=== PATIENT | male | born 1970 | race Two or more races ===

== ENCOUNTER → 2016-08-31 | Outpatient (CLI) | payer OTHER ==
[~2016-08-31] MED LIST: ENAL10TA PO; METF850T PO; PROP60CA7 PO; SPIR100T31 PO
--- NOTE | 2016-08-31 10:02 | RADRPT ---
PROCEDURE: XR right knee. CLINICAL INDICATION: Knee pain TECHNIQUE: AP weightbearing, PA and weightbearing, lateral weightbearing and sunrise views are les ilable for review. COMPARISON: None available FINDINGS: There is moderate osteoarthrosis involving the patellofemoral compartment and mild osteoarthrosis in volving the medial tibial femoral compartment and the lateral tibial femoral compartment. This is as sociated with joint space narrowing, subchondral sclerosis and osteophytosis. There is otherwise normal mineralization, architecture and alignment. No fractures are identified. No osseous lesions are identified. The soft tissues are unremarkable. IMPRESSION: Moderate osteoarthrosis involving the patellofemoral compartment and mild osteoarthrosis involving t he medial tibial femoral compartment and the lateral tibial femoral compartment. RPTAT: HGDB .Steve Frost MD, Date Time Electronically viewed and signed by .Steve Frost MD, on 08/31/2016 10:02 .B/
== END | disposition home or self-care (01) ==
LOC: HKI 09:21
PROVIDERS: ATTEND Orthopaedic Surgery
DX: S83.271D Complex tear of lateral meniscus, current injury, right knee, subsequent encounter (principal); M25.561 Pain in right knee; M17.11 Unilateral primary osteoarthritis, right knee; E11.9 Type 2 diabetes mellitus without complications; I10 Essential (primary) hypertension
CPT/HCPCS: 73564; Z7500; G0463

== ENCOUNTER → 2016-11-09 | Outpatient (CLI) | payer OTHER | END | disposition home or self-care (01) | LOC: HKI 10:11 | PROVIDERS: ATTEND Orthopaedic Surgery | DX: M25.561 Pain in right knee (principal); M17.11 Unilateral primary osteoarthritis, right knee; S83.271A Complex tear of lateral meniscus, current injury, right knee, initial encounter; S83.231A Complex tear of medial meniscus, current injury, right knee, initial encounter | CPT/HCPCS: G0463 ==

== ENCOUNTER 2017-06-23 09:12 | Day surgery (SDC) | payer OTHER ==
[~2017-06-23] VITALS: Ht 172.7 cm; Wt 128.1 kg
[2017-06-23 10:32] VITALS: Ht 172.7 cm; Wt 128.1 kg
[2017-06-23] MEDS ORDERED: RIFA550T4 PO (10:34)
[2017-06-23] MEDS ORDERED: OMEP40CA6 PO (10:34)
[2017-06-23] MEDS ORDERED: LIDOCAINE 2% (SDV) 5 ML INJ ONE (11:41)
[2017-06-23] MEDS ORDERED: PROPOFOL 60 ML ONE (11:41)
--- NOTE | 2017-06-23 12:04 | OPPN ---
Date/Time of Note Date/Time of Note DATE: 06/23/17 TIME: 12:02 Proc Note GI Procedure Date 06/23/17 Indication: diagnostic, treatment Pre-procedure Diagnosis esophageal varices needs banding Post-procedure Diagnosis gr 3 eso varices Procedure Performed: Endoscopy Surgeon see signature line Viscosity Worker none Anesthesia Type: MAC Anesthesiologist: MALLORY CASTRO MD Tourniquet Time none EBL none Transfusion required none Biopsy 1: gastric ulcer Grafts/Implants none Tubes/Drains none Complication(s) none Procedure Description under mac egd banding of eso varices done gastric ulcer biopsied ISAK العراقي MD Jun 23, 2017 12:04
[2017-06-23 12:50] VITALS: BP 134/71; PULSE 67; RESP 18
--- NOTE | 2017-06-23 14:11 | GILP ---
DATE OF PROCEDURE: NAME OF PROCEDURE: Esophagogastroduodenoscopy, esophageal variceal banding and esophageal gastric u lcer biopsy. PREOPERATIVE DIAGNOSIS: 1. Patient presenting with history of esophageal varices. The patient needs an esophageal variceal banding to prevent further bleeding. 2. History of gastric ulcer to evaluate to see if there are any ulcers or any evidence of cancer of the stomach. POSTOPERATIVE DIAGNOSES: 1. Grade III esophageal varices. 2. A 3 mm linear ulcer noted in the mid body posterior wall of the stomach. Biopsy was done. CLOt est was performed. DESCRIPTION OF PROCEDURE: After informed written consent was obtained, the patient was asked to lie on the left lateral side. Intravenous anesthesia was given by anesthesiologist, Dr. Burk. When the patient became somnolent, the Olympus video upper endoscope was introduced into the oropharynx, then into the esophagus. Esophagus appeared to show evidence of grade III esophageal varices. Mini mal erosions and erythema noted above the GE junction on the varices. Scope at this time was advanc ed into the stomach. A 3 mm ulcer noted in the mid body posterior wall of the stomach. Diffuse gas tritis was noted in the entire stomach. Biopsy was done from the antrum, the lesser curvature and t he fundus to rule out H. pylori infection. The duodenum appeared normal up to the end of the third portion. Endoscope at this time was withdrawn. At this time, the [employer] esophageal vari ceal banding device was attached to the scope and scope was reintroduced into the stomach and 3 vari luis were selected and bandings were deployed over these varices. Photographs were obtained. Endosc ope at this time was withdrawn and the procedure was terminated. PLAN: Recommend propranolol 20 mg p.o. b.i.d. Dictated By: ISAK DESAI/NTS Conf#: [id number] DID#: [id number] CC: Sammie Kelley MD;*End*
== END 2017-06-23 15:30 | disposition home or self-care (01) ==
LOC: GIL 09:12
PROVIDERS: ATTEND Internal Medicine Gastroenterology
DX: I85.00 Esophageal varices without bleeding (principal); I10 Essential (primary) hypertension; E11.9 Type 2 diabetes mellitus without complications; E78.5 Hyperlipidemia, unspecified; E66.01 Morbid (severe) obesity due to excess calories; Z68.41 Body mass index [BMI] 40.0-44.9, adult
CPT/HCPCS: 43239; 82962; 88305; 88312; Z7610

== ENCOUNTER 2017-06-26 04:37 | Inpatient (IN) | payer OTHER ==
[~2017-06-26] VITALS: Ht 172.7 cm; Wt 126.5 kg
[~2017-06-26 04:37] MED LIST changes: +OMEP40CA6 PO; +RIFA550T4 PO; -SPIR100T31 PO
[2017-06-26] MEDS ORDERED: morphine 4 MG/ML VIAL IV STA (05:09)
[2017-06-26] MEDS ORDERED: ONDANSETRON 4 MG INJ IV STA (05:09)
[2017-06-26] MEDS ORDERED: SOD CHLORIDE 0.9% 1,000 ML IV STA (05:09)
[2017-06-26 05:54] LABS: ABNORMAL IP MESSAGE 1; HEMATOCRIT 36.1 % (42.0-52.0); HEMOGLOBIN 12.7 g/dl (14.0-18.0); MEAN CORPUSCULAR HEMOGLOBIN 34.5 pg (29.0-33.0); MEAN CORPUSCULAR HGB CONC 35.2 g/dl (32.0-37.0); MEAN CORPUSCULAR VOLUME 98.1 fl (82.0-101.0); MEAN PLATELET VOLUME 10.2 fl (7.4-10.4); POSITIVE DIFF @See below; RED BLOOD COUNT 3.68 10^6/ul (4.70-6.10); RED CELL DISTRIBUTION WIDTH 15.4 % (11.5-14.5); WHITE BLOOD COUNT 3.1 10^3/ul (4.8-10.8)
--- NOTE | 2017-06-26 05:57 | RADRPT ---
PROCEDURE: CHEST - 1 VIEW CLINICAL INDICATION: 46-year-old male with chest/abdominal pain. TECHNIQUE: A single frontal semi-upright view of the chest was performed portably. The images wer e reviewed on a PACS workstation. COMPARISON: None. FINDINGS: The cardiomediastinal silhouette within normal limits. There is a shallow inspiration. There is bila teral lower lung zone subsegmental atelectasis. There is no evidence for an infiltrate. There is n o evidence for congestive heart failure. There is no evidence for pneumothorax. The osseous structur es are intact. IMPRESSION: Shallow inspiration with bilateral lower lung zone subsegmental atelectasis. .Delfin Wei MD, MD Date Time Electronically viewed and signed by .Delfin Wei MD, on 06/26/2017 05:56 .M/
--- NOTE | 2017-06-26 06:04 | ERD ---
ER Documentation Chief Complaint Chief Complaint had endoscopy 3 days ago, c/o diarrhea/fever. seen at [facility] yesterday HPI This is a 46-year-old male with a past medical history of Diabetes, GERD, hypertension, liver disease who is presenting with fever, chills, nausea and diarrhea since yesterday. He had an endoscopy 3 days ago and was ultimately discharged. He is actually seen at [facility] yesterday for similar symptoms as today. The patient has had no headache or vision changes. The patient does not endorse neck or back pain. The patient denies lightheadedness or dizziness. The patient has had no chest pain or shortness of breath or trouble breathing. The patient denies vomiting. The patient denies changes to bowel movements or urination. He notes that his stool has been yellow in color. The patient has had no focal deficits. The patient has had no weakness or numbness or tingling to the face or extremities. Of note, the patient noticed rubber bands in his stool. ROS All systems reviewed and are negative except as per history of present illness. Medications Home Meds Reported Medications Rifaximin* (Xifaxan*) 550 Mg Tablet, 550 MG PO BID, TAB 06/23/17 Omeprazole* (Omeprazole*) 40 Mg Capsule.dr, 40 MG PO DAILY, #30 CAP 06/23/17 Propranolol Hcl* (Inderal* LA) 60 Mg Cap.sa.24h, 40 MG PO BID, CAP 04/16/14 Metformin Hcl* (Metformin Hcl*) 850 Mg Tablet, 850 MG PO WITH BREAKFAST DINNE, TAB 04/16/14 Enalapril Maleate* (Enalapril Maleate*) 10 Mg Tablet, 10 MG PO DAILY, TAB 04/16/14 Discontinued Reported Medications Spironolactone* (Spironolactone*) 100 Mg Tablet, 25 MG PO TID, TAB 04/16/14 Allergies Allergies: Coded Allergies: acetaminophen (Unverified Allergy, Intermediate, 06/26/17) PMhx/Soc History of Surgery: Yes (APPENDIX) Anesthesia Reaction: No Hx Neurological Disorder: No Hx Respiratory Disorders: No Hx Cardiac Disorders: Yes (HTN, HYPELIPIDEMIA) Hx Psychiatric Problems: No Hx Miscellaneous Medical Probl: Yes (DM) Hx Alcohol Use: No Hx Substance Use: No Hx Tobacco Use: No Smoking Status: Never smoker FmHx Family History: No diabetes Physical Exam Vitals Vital Signs Date Time Temp Pulse Resp B/P Pulse Ox O2 Delivery O2 Flow Rate FiO2 06/26/17 06:30 101.1 93 24 120/70 97 Room Air 06/26/17 05:38 102.2 90 28 130/64 95 Room Air 06/26/17 04:47 101.3 98 20 147/72 95 Physical Exam Const: No apparent distress, well-developed, well-nourished Head: Normocephalic, Atraumatic Eyes: Normal Conjunctiva. Extraocular movements intact. Pupils equal, round and reactive to light ENT: Normal External Ears, Nose and Mouth. Neck: Full range of motion. No meningismus. Resp: Clear to auscultation bilaterally, No wheezes, rales or rhonchi Cardio: Regular rate and rhythm. No murmurs, rubs or gallops Abd: Soft, Distended, Right sided tenderness. Normal bowel sounds Skin: No petechiae or rashes Back: No midline tenderness. No CVA tenderness Ext: No cyanosis, or edema Neur: Awake and alert, oriented 4. Cranial nerves intact. No facial droop. Normal strength, sensation and coordination. Psych: Normal Mood and Affect Result Diagram: 06/26/17 0532 06/26/17 0532 Results 24 hrs Laboratory Tests Test 06/26/17 05:32 06/26/17 06:13 White Blood Count 3.110^3/ul Red Blood Count 3.6810^6/ul Hemoglobin 12.7g/dl Hematocrit 36.1% Mean Corpuscular Volume 98.1fl Mean Corpuscular Hemoglobin 34.5pg Mean Corpuscular Hemoglobin Concent 35.2g/dl Red Cell Distribution Width 15.4% Platelet Count 2410^3/UL Mean Platelet Volume 10.2fl Neutrophils % % Lymphocytes % % Monocytes % % Eosinophils % % Basophils % % Nucleated Red Blood Cells % 0.0/100WBC Neutrophils # 10^3/ul Lymphocytes # 10^3/ul Monocytes # 10^3/ul Eosinophils # 10^3/ul Basophils # 10^3/ul Nucleated Red Blood Cells # 10^3/ul Sodium Level 140mmol/L Potassium Level 4.1mmol/L Chloride Level 110mmol/L Carbon Dioxide Level 22mmol/L Anion Gap 12 Blood Urea Nitrogen 11mg/dl Creatinine 0.89mg/dl Glucose Level 111mg/dl Lactic Acid Level 2.4mmol/L Calcium Level 8.5mg/dl Total Bilirubin 1.6mg/dl Direct Bilirubin 0.00mg/dl Indirect Bilirubin 1.6mg/dl Aspartate Amino Transf (AST/SGOT) 50IU/L Alanine Aminotransferase (ALT/SGPT) 45IU/L Alkaline Phosphatase 164IU/L Total Protein 7.5g/dl Albumin 3.0g/dl Globulin 4.50g/dl Albumin/Globulin Ratio 0.66 Lipase 288U/L Urine Color YELLOW Urine Clarity CLEAR Urine pH 5.0 Urine Specific [place] 1.012 Urine Ketones NEGATIVEmg/dL Urine Nitrite NEGATIVEmg/dL Urine Bilirubin NEGATIVEmg/dL Urine Urobilinogen NEGATIVEmg/dL Urine Leukocyte Esterase NEGATIVELeu/ul Urine Microscopic RBC 0/HPF Urine Microscopic WBC 1/HPF Urine Hemoglobin 1+mg/dL Urine Glucose NEGATIVEmg/dL Urine Total Protein NEGATIVEmg/dl Current Medications Medications (Trade) Dose Ordered Sig/Kelvin Route PRN Reason Start Time Stop Time Status Last Admin Dose Admin Sodium Chloride (NS) 1,000 ml @ 1,000 mls/hr Q1H STAT IV 06/26/17 05:09 06/26/17 06:08 DC 06/26/17 05:09 Morphine Sulfate (morphine) 4 mg ONCE STAT IV 06/26/17 05:09 06/26/17 05:11 DC 06/26/17 06:24 Ondansetron HCl (Zofran Inj) 4 mg ONCE STAT IV 06/26/17 05:09 06/26/17 05:11 DC 06/26/17 06:24 Sodium Chloride 2930 ml 2,930 ml BOLUS OVER 2 HOURS STAT IV* 06/26/17 06:52 06/26/17 06:56 DC Vancomycin HCl 250 ml @ 125 mls/hr ONCE STAT IVPB 06/26/17 06:52 06/26/17 08:51 Piperacillin Sod/ Tazobactam Sod 50 ml @ 100 mls/hr ONCE STAT IVPB 06/26/17 06:52 06/26/17 07:21 Metronidazole (Flagyl 500 Mg (Pmx)) 100 ml @ 100 mls/hr ONCE STAT IVPB 06/26/17 06:52 06/26/17 07:51 Procedures/MDM MDM The patient's presentation warrants further investigation. LABS The patient's blood work was obtained and reviewed. The patient's CBC shows leukopenia. The patient is febrile and does appear systemically ill. I do suspect a systemic infection. The patient is mildly anemic today, but this does not require emergent treatment. The patient is thrombocytopenic, likely attributed to his cirrhosis and splenomegaly, sequela from liver disease. The patient's CMP shows no signs of metabolic or electrolyte emergencies. The patient has unremarkable renal function testing. LFTs are elevated. Lactic is also elevated. IMAGING CT Abd/Pelvis 1. Mild colonic diverticulosis with pericolonic inflammation suggestive of acute diverticulitis or inflammatory infectious colitis in the ascending colon and see pericecal region. 2. Appendix not visualized and correlate with prior surgical history and no evidence for acute appendicitis. 3. Diffuse fatty infiltration of the liver and mild splenomegaly 4. 4 mm right inferior pole nonobstructive renal calculus 5. No evidence for pneumoperitoneum or ascites A call report was made to Dr. Devonte Storm at 06/26/2017 6:16:18 AM following the completion of the examination by the undersigned. Electronically viewed and signed by .Faviola Martinez MD, MD on 06/26/2017 06: 17 CXR The cardiomediastinal silhouette within normal limits. There is a shallow inspiration. There is bilateral lower lung zone subsegmental atelectasis. There is no evidence for an infiltrate. There is no evidence for congestive heart failure. There is no evidence for pneumothorax. The osseous structures are intact. IMPRESSION: Shallow inspiration with bilateral lower lung zone subsegmental atelectasis. Electronically viewed and signed by .Delfin Wei MD, MD on 06/26/2017 05:56 TREATMENT/DISPOSITION The patient's presentation is concerning for an intra-abdominal infection, appearing to be diverticulitis on CT scan. The sepsis protocol to be followed, except for IV fluids. The patient will receive 2 L, but will not receive a full 30 cc/kg because of his history of heart failure. He will receive broad- spectrum antibiotics as well. Patient's infectious symptoms have not stabilized and the patient is at risk of rapid decompensation. The patient will be admitted for careful hydration, antibiotic therapy, and infectious source control. Severe Sepsis criteria: Infectious source: Diverticulitis End organ damage indicated by: Lactate > 2.0 mmol/L Plt < 100 Sepsis Management: Time of recognition of sepsis: Upon Arrival Within 3 hours of recognition: Blood cultures x 2 before broad-spectrum antibiotics: Yes 30 ml/kg NS bolus: 2L Given, decreased for CHF Initial lactate: 2.4 Repeat lactate: Pending Time of recognition of septic shock: No septic shock Accepting Care Team Current data and ongoing care discussed. Admitting Physician: Earnestine Archuleta Coding Team Lead(s): None Outstanding Data: Culture results At this time, I feel that the patient requires admission for further evaluation and management. The patient may require GI consultation given that the patient had rubber bands in his stool. It is possible that those were previous attempts prior to successful banding of his esophageal varices. However, this may be evaluated by GI at that time. The patient will be admitted to Panel in accordance with the patient's insurance. The patient was accepted by Dr. Colby at 0701 on June 26, 2017. CRITICAL CARE NOTE Time: 30 minutes excluding all billable procedures. Treatments/Evaluations: Evaluation of the patient's medical record including previous records & current laboratory/imaging studies, close monitoring, potential interventions if hemodynamically unstable or cardiopulmonary decline or neurologic decline, maintaining tight fluid balance, any discussions with the family regarding the patient's status and prognosis. Disclaimer: Inadvertent spelling and grammatical errors are likely due to EHR/ dictation software use and do not reflect on the overall quality of patient care. Note that the electronic time recorded on this note does not necessarily reflect the actual time of the patient encounter. Departure Diagnosis: Primary Impression: Sepsis Sepsis type: sepsis due to unspecified organism Qualified Code: A41.9 - Sepsis, due to unspecified organism Additional Impressions: History of esophagogastroduodenoscopy (EGD) Abdominal pain Abdominal location: unspecified location Qualified Code: R10.9 - Abdominal pain, unspecified abdominal location Diarrhea Diarrhea type: unspecified type Qualified Code: R19.7 - Diarrhea, unspecified type Thrombocytopenia Leukopenia Leukopenia type: unspecified Qualified Code: D72.819 - Leukopenia, unspecified type Condition: Serious CHENG STORM MD Jun 26, 2017 06:04
[2017-06-26 06:05] LABS: PLATELET COUNT 24 10^3/UL (140-415)
--- NOTE | 2017-06-26 06:17 | RADRPT ---
PROCEDURE: CT abdomen and pelvis without contrast. CLINICAL INDICATION: Abdominal pain TECHNIQUE: CT scan of the abdomen and pelvis without contrast was performed on a [employer] CT scanner utilizing axial imaging from the lung bases through the pubis symphysis. The patient was sc anned without intravenous contrast. Sagittal and coronal reformatted images were made. The CTDIvol is 22.29 mGy and the DLP is 1510.27 mGycm. DICOM images are available. One of the following 3 dose reduction techniques were used during this CT examination: 1) Automated exposure control 2) Adjustment of the mA +/- kV according to patient size or 3) Use of iterative reconstruction technique COMPARISON: No relevant priors FINDINGS: The lung bases are clear. The heart size is normal. No pericardial or pleural effusion is present. Diffuse fatty infiltration of the liver is noted with a normal-sized liver. Mild splenomegaly is pre sent. The visualized stomach is normal. The visualized pancreas, gallbladder, and bilateral adrenal glands are normal. The bilateral kidneys demonstrate a 4 mm right inferior pole renal calculus which is nonobstructive. No evidence for hydroureteronephrosis is present. The bilateral ureters are symm etric. The urinary bladder is normal. The visualized bowel demonstrates a nonobstructive pattern. Mild diverticulosis is present. The appe arance of pericolonic inflammation is noted adjacent to the cecum and the ascending colon. This is m ost likely due to an acute diverticulitis and consider other etiologies such as inflammatory or infe ctious colitis. No evidence for abscess collections or pneumoperitoneum is present. The appendix is not visualized and correlate with prior appendectomy. No evidence for pneumoperitoneum or ascites is present. No pelvic mass, lymphadenopathy, or free fluid is seen. There is no evidence of free air. No aneur ysmal dilatation of the aorta is evident. The surrounding osseous structures are remarkable for degenerative spondylosis of the imaged spine a nd bridging osteophytes of the bilateral sacroiliac joints. No evidence for acute fractures or dislo cations are present. The appearance of a grade 1 spondylolisthesis of 3 mm of L4 and L5 is noted wit hout evidence for spondylolysis.. IMPRESSION: 1. Mild colonic diverticulosis with pericolonic inflammation suggestive of acute diverticulitis or inflammatory infectious colitis in the ascending colon and see pericecal region. 2. Appendix not visualized and correlate with prior surgical history and no evidence for acute appe ndicitis. 3. Diffuse fatty infiltration of the liver and mild splenomegaly 4. 4 mm right inferior pole nonobstructive renal calculus 5. No evidence for pneumoperitoneum or ascites A call report was made to Dr. Devonte Storm at 06/26/2017 6:16:18 AM following the completion of the ex amination by the undersigned. RPTAT: HDC .Faviola Martinez MD, MD Date Time Electronically viewed and signed by .Faviola Martinez MD, MD on 06/26/2017 06:17 .C/
[2017-06-26 06:42] LABS: ADD UMIC YES; UR ASCORBIC ACID NEGATIVE (NEGATIVE); UR BILIRUBIN (Dip) NEGATIVE (NEGATIVE); UR BLOOD (Dip) 1+ mg/dL (NEGATIVE); UR CLARITY CLEAR (CLEAR); UR COLOR YELLOW (YELLOW); UR GLUCOSE (Dip) NEGATIVE (NEGATIVE); UR KETONES (Dip) NEGATIVE (NEGATIVE); UR LEUKOCYTE ESTERASE (Dip) NEGATIVE Leu/ul (NEGATIVE); UR NITRITE (Dip) NEGATIVE (NEGATIVE); UR RBC 0 /HPF (0-5); UR SPECIFIC GRAVITY (Dip) 1.012 (1.003-1.030); UR TOTAL PROTEIN (Dip) NEGATIVE (NEGATIVE); UR UROBILINOGEN (Dip) NEGATIVE (NEGATIVE)
[2017-06-26 06:44] LABS: ALBUMIN/GLOBULIN RATIO 0.66; BILIRUBIN,INDIRECT 1.6 mg/dl (0-1.1); BILIRUBIN,TOTAL 1.6 mg/dl (0.2-1.3); CALCIUM 8.5 mg/dl (8.4-10.2); CREATININE 0.89 mg/dl (0.61-1.24); POTASSIUM 4.1 mmol/L (3.5-5.1); TOTAL PROTEIN 7.5 g/dl (6.1-8.1)
[2017-06-26] MEDS ORDERED: PIPER-TAZO 3.375 GM IV (PMX) 50 ML IVPB STA (06:52)
[2017-06-26] MEDS ORDERED: SODIUM CHLORIDE 0.9% 1L BAG IV* STA (06:52)
[2017-06-26] MEDS ORDERED: metroNIDAZOLE 500 MG/NS (PMX) 100 ML IVPB STA (06:52)
[2017-06-26] MEDS ORDERED: VANCOMYCIN 1 GM (PMX) 250 ML IVPB STA (06:52)
[2017-06-26] MEDS ORDERED: ONDANSETRON 4 MG INJ IV PRN ×2 (07:30→10:30)
[2017-06-26] MEDS ORDERED: SOD CHLORIDE 0.9% 1,000 ML IV ONE (07:30)
[2017-06-26 08:30] VITALS: TEMP 98.9
[2017-06-26 08:53] LABS: ANISOCYTOSIS 1+ (0-0); BASOPHILS % (M) 1 % (0-2); METAMYELOCYTES %M 1 % (0-0); MONOCYTES % (M) 1 % (0-11); OVALOCYTES 1+ (0-0); PLATELET ESTIMATE SIG DECREASED; POIKILOCYTOSIS 1+ (0-0); POLYCHROMASIA 1+ (0-0)
[2017-06-26 08:55] LABS: PATH REVIEW? YES
--- NOTE | 2017-06-26 10:04 | HP ---
Date/Time of Note Date/Time of Note DATE: 06/26/17 TIME: 10:04 Assessment/Plan VTE Prophylaxis VTE Prophylaxis Intervention: ambulation Assessment/Plan Chief Complaint/Hosp Course 46-year-old male status post EGD with banding 3 days ago, now presenting to the emergency room with right upper quadrant abdominal pain, fever, chills and mild diarrhea that started yesterday. 1. Acute diverticulitis. -Admit as inpatient. Bowel rest, IV fluids, pain control, antiemetics PRN, Cipro and Flagyl. -Blood cultures. -GI consult as patient had EGD 3 days ago. 2. Recent history of esophageal varices, status post EGD with banding. -Continue PPI therapy. 3. Fatty liver/liver cirrhosis/splenomegaly. -Obtain hip panel. Monitor LFTs closely. Avoid hepatotoxins. 4. Hyperbilirubinemia, transaminase elevation likely secondary to #3. -We will monitor. 5. Pancytopenia, likely secondary to liver disease. -Platelet counts at 24,000-will transfuse 1 unit platelet pheresis today. -Monitor. 6. Lactic acidosis, rule out sepsis. Resolved. -Follow-up cultures. Continue prophylactic antibiotics for #1. 7. Type 2 diabetes. -Accu-Cheks/insulin sliding scale. 8. Obesity. -Weight reduction advised. Plan: Patient will be kept strict n.p.o until his symptoms improved and then we will advance diet slowly as tolerated. We will also follow-up with GI recommendations. Approximately 60 minutes was spent on this history and physical. Rest of the management depend on hospital course. Patient was seen in collaboration with Dr. Pierce. Problems: HPI/ROS Admit Date/Time Admit Date/Time Hx of Present Illness This is a 46-year-old male with a past medical history of type 2 diabetes, hypertension, GERD, liver cirrhosis, appendectomy, esophageal varices, status post EGD with banding 3 days ago, who presented to the emergency room for evaluation of right-sided abdominal pain with subjective fevers and chills that started yesterday. He also had mild diarrhea which is now stopped. Patient denied any hematemesis, hematochezia, melena, hematuria, chest pain, shortness of breath, dizziness, or other constitutional symptoms. Initial workup was significant for elevated lactic acid 2.4, total bilirubin 1.6 , indirect bilirubin 1.6, AST 50, alkaline phosphatase 164, WBC 3.1, hemoglobin 12.7, hematocrit 36.1 and platelet 24. Urine analysis negative for any acute infection. A CT abdomen and pelvis showed diverticulosis with pericolonic inflammation suggestive of acute diverticulitis or inflammatory/infectious colitis in the ascending colon. There was also diffuse fatty infiltration of the liver and mild splenomegaly. Patient was given Zosyn/vancomycin/Flagyl with IV fluids in the emergency room for sepsis protocol and was admitted. ROS A 12 point review of system was assessed and is negative other than what is mentioned in the HPI. PMH/Family/Social Past Medical History See HPI Past Surgical History See HPI Social History Patient denied history of alcohol, smoking or illicit drug use. Smoking Status: Never smoker Exam/Review of Systems Vital Signs Vitals Vital Signs Date Time Temp Pulse Resp B/P Pulse Ox O2 Delivery O2 Flow Rate FiO2 06/26/17 08:30 98.9 89 25 101/59 98 Nasal Cannula 3.0 Exam Exam General: Well developed,adequately built, not in any acute distress . HEENT: Normocephalic, Atraumatic, No laceration or hematoma; Eyes: PEERL, Conjunctiva clear, Anicteric sclera Neck: Supple without any lymphadenopathy, nontender, no JVD, no carotid bruits, trachea midline, no thyromegaly Cardiac: S1, S2 auscultated, regular rhythm and rate, no mumurs or gallop Pulmonary: Normal respiratory effort. Chest clear to auscultation bilaterally, no adventitious breath sounds GI: Right upper quadrant pain. Soft, non- distended, no masses, no rebound tenderness or guarding. Bowel sounds active on all four quadrants Genitourinary: Deferred Extremities: No cyanosis, clubbing, or edema. Pulses [2+] bilaterally. Full ROM on all four extremities. No focal weakness appreciated. Neurologic: Alert to person, place, time, and situation. Affect appropriate, intact sensation. Skin: Clean,dry, and intact. No ecchymosis, no rashes, or lesions Labs Result Diagram: 06/26/17 0532 06/26/17 0532 GINGER SOLORIO NP Jun 26, 2017 10:04
[2017-06-26] MEDS ORDERED: hydrALAzine 20 MG INJ IV PRN (10:30)
[2017-06-26] MEDS ORDERED: NACL 0.9% 3 ML SYG IV SCH (10:30)
[2017-06-26] MEDS ORDERED: BISACODYL 10 MG SUPP PR PRN (10:30)
[2017-06-26] MEDS ORDERED: morphine 2 MG INJ IV PRN (10:30)
[2017-06-26 10:34] LABS: HAAIG REFLEX REFLEX FILED
[2017-06-26 14:00] VITALS: BP 109/51; PULSE 80; RESP 20; Ht 172.7 cm; Wt 126.5 kg
[2017-06-26 14:45] LABS: HEPATITIS B CORE ANTIBODY NEGATIVE (NEGATIVE)
[2017-06-26] MEDS ORDERED: SOD CHLORIDE 0.9% 250 ML IV* ONE (16:11)
[2017-06-26] MEDS: metroNIDAZOLE 500 MG/NS (PMX) 100 ML IVPB SCH ×2 (16:39→23:00)
[2017-06-26] MEDS: SOD CHLORIDE 0.9% 1,000 ML IV SCH (16:40)
[2017-06-26 20:28] VITALS: BP 112/59; PULSE 76; RESP 18
--- NOTE | 2017-06-26 22:27 | CONS ---
DATE OF ADMISSION: 06/26/2017 DATE OF CONSULTATION: TYPE OF CONSULTATION: Gastroenterology. Dear : Thank you for asking me to see Mr. White in GI consultation. HISTORY OF PRESENT ILLNESS: The patient, as you know, is a 46-year-old male. He is admitt ed to the hospital because of history of abdominal pain and fever. Three days ago, he had upper end oscopy and esophageal variceal banding performed; however, this morning, he developed left lower lisa drant pain, and also some substernal chest pain. He has history of cirrhosis. Esophageal variceal banding was performed 3 days ago. He also has history of diabetes and hypertension, gastroesophagea l reflux disease, history of alcoholism. He had a small amount of diarrhea prior to the admission. CURRENT MEDICATIONS: Include: 1. Pantoprazole. 2. Cipro. 3. Flagyl. 4. Zofran. 5. Dulcolax. 6. Apresoline. 7. Vancomycin. 8. Zosyn. PHYSICAL EXAMINATION: GENERAL: The patient is a 46-year-old male who, at this time, is alert, is well built, is afebrile. VITAL SIGNS: Temperature 98.7, blood pressure 112/59. CARDIOVASCULAR: Normal heart sounds. RESPIRATORY: Normal breath sounds. ABDOMEN: Showed a soft abdomen with no significant palpable masses or tenderness. LABORATORY WORKUP: The WBC count is 3100, platelet count is 24,000, hemoglobin 12.7, the bilirubin is 1.6, AST is 50, AST is 45, alkaline phosphatase 164. CAT scan of the abdomen shows evidence of w hat is reported as a diverticulitis of the sigmoid colon, appendix not visualized, fatty infiltratio n of the liver noted, right renal calculus noted. CLINICAL IMPRESSION: 1. The patient seems to have evidence of acute diverticulitis and hence he is admitted to the [facility]. 2. History of cirrhosis, status post esophageal variceal banding. 3. Diabetes. 4. Hypertension. PLAN: Agree with present management with antibiotic therapy, and I will be happy to follow this pat ient with you. Once again, doctor, thank you for this consultation. Dictated By: ISAK DESAI/MALIKA Conf#: [id number] [facility]#: [id number] CC: ; LANCE CANAS;*José Miguel*
[2017-06-26] MEDS: CIPROFLOXACIN 400MG/D5W 200 ML IVPB SCH (22:35)
[2017-06-27 00:10] VITALS: BP 107/59; PULSE 78; RESP 18
[2017-06-27 02:43] VITALS: BP 113/58; PULSE 78; RESP 18
[2017-06-27] MEDS: SOD CHLORIDE 0.9% 1,000 ML IV SCH ×3 (03:20→20:31)
[2017-06-27] MEDS: PANTOPRAZOLE 40 MG INJ IV SCH (05:50)
[2017-06-27] MEDS: metroNIDAZOLE 500 MG/NS (PMX) 100 ML IVPB SCH ×3 (05:50→21:55)
[2017-06-27 06:28] LABS: ABNORMAL IP MESSAGE 1; HEMATOCRIT 29.5 % (42.0-52.0); MEAN CORPUSCULAR HEMOGLOBIN 34.4 pg (29.0-33.0); MEAN CORPUSCULAR HGB CONC 33.9 g/dl (32.0-37.0); MEAN CORPUSCULAR VOLUME 101.4 fl (82.0-101.0); MEAN PLATELET VOLUME 10.7 fl (7.4-10.4); POSITIVE DIFF @See below; RED BLOOD COUNT 2.91 10^6/ul (4.70-6.10); RED CELL DISTRIBUTION WIDTH 15.9 % (11.5-14.5); WHITE BLOOD COUNT 2.4 10^3/ul (4.8-10.8)
[2017-06-27 06:58] LABS: PLATELET COUNT 27 10^3/UL (140-415)
[2017-06-27 07:04] LABS: ALBUMIN 2.2 g/dl (3.3-4.9); ALBUMIN/GLOBULIN RATIO 0.59; BILIRUBIN,INDIRECT 1.6 mg/dl (0-1.1); BILIRUBIN,TOTAL 1.6 mg/dl (0.2-1.3); CALCIUM 7.9 mg/dl (8.4-10.2); CHOL/HDL RATIO 3.6 RATIO; CREATININE 0.78 mg/dl (0.61-1.24); MAGNESIUM 1.6 mg/dl (1.7-2.5); PHOSPHORUS 3.1 mg/dl (2.5-4.9); POTASSIUM 3.4 mmol/L (3.5-5.1); TOTAL PROTEIN 5.9 g/dl (6.1-8.1)
[2017-06-27 07:33] LABS: THYROID STIMULATING HORMONE 1.85 MIU/L (0.465-4.680)
[2017-06-27 08:00] VITALS: BP 119/67; PULSE 86; RESP 20
[2017-06-27] MEDS: CIPROFLOXACIN 400MG/D5W 200 ML IVPB SCH ×2 (08:46→20:31)
[2017-06-27 09:49] LABS: MONOCYTES % (M) 6 % (0-11); PLATELET ESTIMATE SIG DECREASED; POIKILOCYTOSIS 1+ (0-0); POLYCHROMASIA 3+ (0-0)
--- NOTE | 2017-06-27 10:39 | PN ---
Date/Time of Note Date/Time of Note DATE: 06/27/17 TIME: 10:39 Assessment/Plan VTE Prophylaxis VTE Prophylaxis Intervention: ambulation Lines/Catheters IV Catheter Type (from [facility]): Peripheral IV Assessment/Plan Chief Complaint/Hosp Course 46-year-old male status post EGD with banding 3 days ago, Presented to the emergency room with right upper quadrant abdominal pain, fever, chills and mild diarrhea that started yesterday. 1. Acute diverticulitis.Clinically improving. -Advance diet as tolerated. -Continue IV fluids, pain control, antiemetics PRN, Cipro and Flagyl. -Follow-up cultures. -GI consult Appreciated 2. Recent history of esophageal varices, status post EGD with banding. -Continue PPI therapy. 3. Fatty liver/liver cirrhosis/splenomegaly. - Avoid hepatotoxins. 4. Hyperbilirubinemia, transaminase elevation likely secondary to #3. -We will monitor. 5. Pancytopenia, likely secondary to liver disease. -Status post plateletpheresis and no further drop in platelet. -Monitor. 6. Lactic acidosis, rule out sepsis. Resolved. -Follow-up cultures. Continue prophylactic antibiotics for #1. 7. Type 2 diabetes. A1c 6.8. -Accu-Cheks/insulin sliding scale. 8. Obesity. -Weight reduction advised. Plan: Continue current medical management. Follow-up final cultures. Patient was seen in collaboration with Dr. Pierce. Problems: Subjective 24 Hr Interval Summary Free Text/Dictation Patient is doing well overall. He has been advanced to full liquid diet and is tolerating. His abdominal pain is improving. No further fevers. Exam/Review of Systems Vital Signs Vitals Vital Signs Date Time Temp Pulse Resp B/P Pulse Ox O2 Delivery O2 Flow Rate FiO2 06/27/17 08:00 98.2 86 20 119/67 92 Room Air 06/26/17 12:36 2.0 Intake and Output 06/26/17 06/26/17 06/27/17 15:00 23:00 07:00 Intake Total 2350 ml 1200 ml Balance 2350 ml 1200 ml Exam General: Well developed,adequately built, not in any acute distress . HEENT: Normocephalic, Atraumatic, No laceration or hematoma; Eyes: PEERL, Conjunctiva clear, Anicteric sclera Neck: Supple without any lymphadenopathy, nontender, no JVD, no carotid bruits, trachea midline, no thyromegaly Cardiac: S1, S2 auscultated, regular rhythm and rate, no mumurs or gallop Pulmonary: Normal respiratory effort. Chest clear to auscultation bilaterally, no adventitious breath sounds GI: Obese abdomen. Mild right upper quadrant pain on deep palpation. Otherwise, Soft, non- distended, no masses, no rebound tenderness or guarding. Bowel sounds active on all four quadrants Genitourinary: Deferred Extremities: No cyanosis, clubbing, or edema. Pulses [2+] bilaterally. Full ROM on all four extremities. No focal weakness appreciated. Neurologic: Alert to person, place, time, and situation. Affect appropriate, intact sensation. Skin: Clean,dry, and intact. No ecchymosis, no rashes, or lesions Results Result Diagram: 06/27/17 0541 06/27/17 0541 Results 24 hrs Laboratory Tests Test 06/26/17 11:00 06/26/17 13:34 06/26/17 16:42 06/27/17 05:41 Lactic Acid Level 1.8 1.8 1.2 Bedside Glucose 110 White Blood Count 2.4 #L Red Blood Count 2.91 #L Hemoglobin 10.0 #L Hematocrit 29.5 L Mean Corpuscular Volume 101.4 H Mean Corpuscular Hemoglobin 34.4 H Mean Corpuscular Hemoglobin Concent 33.9 Red Cell Distribution Width 15.9 H Platelet Count 27 *L Mean Platelet Volume 10.7 H Neutrophils % Segmented Neutrophils % (Manual) 37 L Band Neutrophils % (Manual) 2 Lymphocytes % Lymphocytes % (Manual) 55 H Monocytes % Monocytes % (Manual) 6 Eosinophils % Basophils % Nucleated Red Blood Cells % 0.0 Neutrophils # Neutrophils # (Manual) 0.9 L Band Neutrophils # 0.0 Absolute Lymphocytes (Manual) 1.3 Lymphocytes # Monocytes # Absolute Monocytes (Manual) 0.1 L Eosinophils # Basophils # Nucleated Red Blood Cells # Platelet Estimate SIG DECREASED Polychromasia 3+ Poikilocytosis 1+ Sodium Level 142 Potassium Level 3.4 L Chloride Level 112 H Carbon Dioxide Level 25 Anion Gap 8 Blood Urea Nitrogen 10 Creatinine 0.78 Glucose Level 115 Hemoglobin A1c 6.8 H Calcium Level 7.9 L Phosphorus Level 3.1 Magnesium Level 1.6 L Total Bilirubin 1.6 H Direct Bilirubin 0.00 Indirect Bilirubin 1.6 H Aspartate Amino Transf (AST/SGOT) 40 Alanine Aminotransferase (ALT/SGPT) 47 Alkaline Phosphatase 110 Total Protein 5.9 #L Albumin 2.2 L Globulin 3.70 H Albumin/Globulin Ratio 0.59 Triglycerides Level 70 Cholesterol Level 113 LDL Cholesterol, Calculated 68 HDL Cholesterol 31 Cholesterol/HDL Ratio 3.6 Thyroid Stimulating Hormone (TSH) 1.850 Test 06/27/17 06:23 Lab Scanned Report BLOOD TRANSFUSION Medications Medications Current Medications Sodium Chloride (NS) 1,000 ml @ 100 mls/hr Q10H IV Last administered on 03:20; Admin Dose 100 MLS/HR; Start 06/26/17 at 10:17 Ondansetron HCl (Zofran Inj) 4 mg Q6H PRN IV NAUSEA AND/OR VOMITING; Start at 10:30 Morphine Sulfate (morphine) 2 mg Q4H PRN IV SEVERE PAIN LEVEL 7-10; Start at 10:30 Bisacodyl (Dulcolax Supp) 10 mg DAILY PRN [place] CONSTIPATION; Start 06/26/17 at 10:30 Pantoprazole (Protonix Iv) 40 mg DAILY@06 IV Last administered on 06/27/17 05 :50; Admin Dose 40 MG; Start 06/27/17 at 06:00 Hydralazine HCl 10 mg 10 mg Q6H PRN IV SBP>160; Start 06/26/17 at 10:30 Ciprofloxacin/ Dextrose 200 ml @ 200 mls/hr Q12 IVPB Last administered on 08:46; Admin Dose 200 MLS/HR; Start 06/26/17 at 21:00 Metronidazole (Flagyl 500 Mg (Pmx)) 100 ml @ 100 mls/hr Q8 IVPB Last administered on 06/27/17 05:50; Admin Dose 100 MLS/HR; Start 06/26/17 at 14: 00 GINGER SOLORIO NP Jun 27, 2017 10:39
[2017-06-27] MEDS ORDERED: GLUCAGON 1 MG INJ IM PRN (11:00)
[2017-06-27] MEDS ORDERED: GLUCOSE GEL 15 GRAM TUBE PO PRN ×2 (11:00)
[2017-06-27] MEDS ORDERED: GLUCOSE GEL 15 GRAM TUBE BUCCAL PRN (11:00)
[2017-06-27] MEDS ORDERED: DEXTROSE 50% 50 ML SYRINGE IV PRN ×2 (11:00)
[2017-06-27] MEDS: INSULIN ASPART [NOVOLOG] 3 ML PEN SC SCH ×3 (12:15→20:38)
[2017-06-27 15:47] LABS: PATH REVIEW CH
[2017-06-27 19:56] VITALS: BP 131/69; RESP 16
[2017-06-28 01:38] VITALS: BP 123/58; RESP 16
[2017-06-28] MEDS ORDERED: ACCU-CHEK XX SCH (02:00)
[2017-06-28] MEDS: SOD CHLORIDE 0.9% 1,000 ML IV SCH ×2 (02:17→11:20)
[2017-06-28] MEDS: PANTOPRAZOLE 40 MG INJ IV SCH (05:58)
[2017-06-28] MEDS: metroNIDAZOLE 500 MG/NS (PMX) 100 ML IVPB SCH ×2 (05:58→13:05)
[2017-06-28 06:18] LABS: ABNORMAL IP MESSAGE 1; HEMATOCRIT 31.1 % (42.0-52.0); HEMOGLOBIN 10.6 g/dl (14.0-18.0); MEAN CORPUSCULAR HEMOGLOBIN 33.7 pg (29.0-33.0); MEAN CORPUSCULAR HGB CONC 34.1 g/dl (32.0-37.0); MEAN CORPUSCULAR VOLUME 98.7 fl (82.0-101.0); POSITIVE DIFF @See below; RED BLOOD COUNT 3.15 10^6/ul (4.70-6.10); RED CELL DISTRIBUTION WIDTH 15.7 % (11.5-14.5); WHITE BLOOD COUNT 2.3 10^3/ul (4.8-10.8)
[2017-06-28 06:30] LABS: PLATELET COUNT 28 10^3/UL (140-415)
[2017-06-28 07:06] LABS: CALCIUM 7.9 mg/dl (8.4-10.2); CREATININE 0.81 mg/dl (0.61-1.24); MAGNESIUM 1.7 mg/dl (1.7-2.5); POTASSIUM 3.6 mmol/L (3.5-5.1)
[2017-06-28 07:44] VITALS: BP 129/64; RESP 18
[2017-06-28] MEDS: INSULIN ASPART [NOVOLOG] 3 ML PEN SC SCH ×2 (08:01→11:53)
[2017-06-28] MEDS: CIPROFLOXACIN 400MG/D5W 200 ML IVPB SCH (08:45)
--- NOTE | 2017-06-28 11:35 | PDOCDIS ---
Discharge Instructions CONDITION Patient Condition: Stable HOME CARE INSTRUCTIONS: Diet Instructions: RegularYour diet recommendation is: carbohydrate-controlled FOLLOW UP/APPOINTMENTS Follow-up Plan 1.Follow up with primary care physician in 1 week If you don't have one please let someone know, we can give you resources that may help you pick one. You may also call your insurance company to assign one to you. Review your medication list with your nurse before leaving and if you need new prescriptions please let your nurse know. I may have made changes to your home medications or given you new prescriptions, please let your primary doctor know as well. Stay compliant with your medications and report any side effects to your PCP or pharmacist. Return to the ER if you have any concerns and cannot reach your doctors or call your insurance company, they usually have a nurse that can help you. 2. Call 911 or go to the nearest emergency room if experiencing loss of consciousness, dizziness, chest pain, shortness of breath, vomiting/abdominal pain, speech difficulties, motor weakness or any unusual symptoms. GINGER SOLORIO NP Jun 28, 2017 11:35
[2017-06-28] MEDS ORDERED: CIPR500T4 PO (11:36)
[2017-06-28] MEDS ORDERED: METR500T14 PO (11:36)
--- NOTE | 2017-06-28 11:38 | DS ---
Date/Time of Note Date/Time of Note DATE: 06/28/17 TIME: 11:38 Discharge Summary Admission/Discharge Info Admit Date/Time Jun 26, 2017 at 07:16 Discharge Date/Time Discharge Diagnosis 1. Acute diverticulitis. Resolved 2. Recent history of esophageal varices, status post EGD with banding. 3. Fatty liver/liver cirrhosis/splenomegaly. 4. Hyperbilirubinemia, transaminase elevation likely secondary to #3. 5. Pancytopenia, likely secondary to liver disease.Status post plateletpheresis and no further drop in platelet. 6. Lactic acidosis, concurrent vs metformin induced. No evidence of sepsis.Patient refused alternatives for metformin and will check with PCP next week. 7. Type 2 diabetes. A1c 6.8. 8. Obesity. Patient Condition: Stable Consults ,GI Procedures 06/26/2017. CT abdomen/Pelvis IMPRESSION: 1. Mild colonic diverticulosis with pericolonic inflammation suggestive of acute diverticulitis or inflammatory infectious colitis in the ascending colon and see pericecal region. 2. Appendix not visualized and correlate with prior surgical history and no evidence for acute appendicitis. 3. Diffuse fatty infiltration of the liver and mild splenomegaly 4. 4 mm right inferior pole nonobstructive renal calculus 5. No evidence for pneumoperitoneum or ascites Hospital Course This is a 46-year-old male with a past medical history of liver cirrhosis, esophageal varices, status post EGD with banding 3 days ago, pancytopenia, who presented to the emergency room with right upper quadrant abdominal pain with subjective fevers, chills for 1 day duration. Patient was noted with diverticulitis in the imaging and was admitted. Initial workup was significant for elevated lactic acid 2.4, total bilirubin 1.6, indirect bilirubin 1.6, AST 50, alkaline phosphatase 164, WBC 3.1, hemoglobin 12.7, hematocrit 36.1 and platelet 24. He was kept on strict bowel rest and treated with IV fluids, pain medications, antiemetics, Cipro and Flagyl. Lactic acidosis resolved. 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 Patient's pancytopenia,transaminitis and hyperbilirubinemia most likely secondary to liver cirrhosis and splenomegaly.There was no ascites. Serology negative for Hep. According to the patient, his platelet counts are always been low and in the higher 20s. Patient also received 1 unit platelet pheresis. There was no further drop in his platelet and did not have any bleeding. Patient was then started on a clear diet which was then advanced. There was no further abdominal pain, fever or chills. For DM, A1C 6.8 and continued on insulin in house. His cultures also was negative. Lactic acidosis most likely concurrent without sepsis. Other possiblity is patient taking metformin at home for which he does not want any other alternatives and will check with his PCP. At this time, patient is feeling back to baseline. He is medically stable for discharge with outpatient follow-up. Disposition: Home. Patient verbalized discharge instructions. Approximately 60 minute was spent in coordinating the discharge on this patient. Patient was seen in collaboration with Dr. Pierce. Home Meds Active Scripts Metronidazole* (Metronidazole*) 500 Mg Tablet, 500 MG PO Q8 for 5 Days, #15 TAB Prov:GINGER SOLORIO V. PATENTED [employer]GS[employer]SEM[employer]ER 06/28/17 Ciprofloxacin Hcl* (Ciprofloxacin Hcl*) 500 Mg Tablet, 500 MG PO BID, #10 TAB Prov:GINGER SOLORIO V. PATENTED [employer] 06/28/17 Reported Medications Rifaximin* (Xifaxan*) 550 Mg Tablet, 550 MG PO BID, TAB 06/23/17 Omeprazole* (Omeprazole*) 40 Mg Capsule.dr, 40 MG PO DAILY, #30 CAP 06/23/17 Propranolol Hcl* (Inderal* LA) 60 Mg Cap.sa.24h, 40 MG PO BID, CAP 04/16/14 Metformin Hcl* (Metformin Hcl*) 850 Mg Tablet, 850 MG PO WITH BREAKFAST DINNE, TAB 04/16/14 Enalapril Maleate* (Enalapril Maleate*) 10 Mg Tablet, 10 MG PO DAILY, TAB 04/16/14 Discontinued Reported Medications Spironolactone* (Spironolactone*) 100 Mg Tablet, 25 MG PO TID, TAB 04/16/14 Follow-up Plan 1.Follow up with primary care physician in 1 week If you don't have one please let someone know, we can give you resources that may help you pick one. You may also call your insurance company to assign one to you. Review your medication list with your nurse before leaving and if you need new prescriptions please let your nurse know. I may have made changes to your home medications or given you new prescriptions, please let your primary doctor know as well. Stay compliant with your medications and report any side effects to your PCP or pharmacist. Return to the ER if you have any concerns and cannot reach your doctors or call your insurance company, they usually have a nurse that can help you. 2. Call 911 or go to the nearest emergency room if experiencing loss of consciousness, dizziness, chest pain, shortness of breath, vomiting/abdominal pain, speech difficulties, motor weakness or any unusual symptoms. Primary Care Provider Ana Laura Daigle Pending Labs Laboratory Tests Test 06/27/17 12:14 06/27/17 17:05 06/27/17 20:37 06/28/17 05:46 Bedside Glucose 149mg/dL (70-220) 88mg/dL (70-220) 114mg/dL (70-220) White Blood Count 2.310^3/ul (4.8-10.8) Red Blood Count 3.1510^6/ul (4.70-6.10) Hemoglobin 10.6g/dl (14.0-18.0) Hematocrit 31.1% (42.0-52.0) Mean Corpuscular Volume 98.7fl (82.0-101.0) Mean Corpuscular Hemoglobin 33.7pg (29.0-33.0) Mean Corpuscular Hemoglobin Concent 34.1g/dl (32.0-37.0) Red Cell Distribution Width 15.7% (11.5-14.5) Platelet Count 2810^3/UL (140-415) Mean Platelet Volume 10.0fl (7.4-10.4) Neutrophils % % (39.0-77.0) Lymphocytes % % (15.0-51.0) Monocytes % % (0.0-11.0) Eosinophils % % (0.0-7.0) Basophils % % (0.0-2.0) Nucleated Red Blood Cells % 0.0/100WBC (0.0-0.0) Neutrophils # 10^3/ul (1.6-7.5) Lymphocytes # 10^3/ul (0.8-2.9) Monocytes # 10^3/ul (0.3-0.9) Eosinophils # 10^3/ul (0.0-0.5) Basophils # 10^3/ul (0.0-0.1) Nucleated Red Blood Cells # 10^3/ul (0.0-0.0) Sodium Level 140mmol/L (135-144) Potassium Level 3.6mmol/L (3.5-5.1) Chloride Level 110mmol/L (97-110) Carbon Dioxide Level 23mmol/L (21-31) Anion Gap 11 (8-16) Blood Urea Nitrogen 7mg/dl (7-20) Creatinine 0.81mg/dl (0.61-1.24) Glucose Level 93mg/dl (70-220) Calcium Level 7.9mg/dl (8.4-10.2) Magnesium Level 1.7mg/dl (1.7-2.5) Test 06/28/17 07:58 Bedside Glucose 99mg/dL (70-220) Microbiology Date/Time Source Procedure Growth Status 06/27/17 17:30 Feces Clostridium difficile Toxin Assay - Final Complete GINGER SOLORIO NP Jun 28, 2017 11:38
== END 2017-06-28 15:05 | disposition home or self-care (01) | DRG 392 ==
LOC: E/R 04:37 → MS3 07:16 → MS2 06-27 02:15
PROVIDERS: ADMIT Hospitalist; ATTEND Hospitalist
PROC: 30233R1 Transfusion of Nonautologous Platelets into Peripheral Vein, Percutaneous Approach (ICD-10-PCS; principal; 2017-06-27)
DX: K57.32 Diverticulitis of large intestine without perforation or abscess without bleeding (principal); D61.818 Other pancytopenia; E87.2 Acidosis; Z68.41 Body mass index [BMI] 40.0-44.9, adult; K74.60 Unspecified cirrhosis of liver; K76.0 Fatty (change of) liver, not elsewhere classified; E66.9 Obesity, unspecified; E11.9 Type 2 diabetes mellitus without complications; I10 Essential (primary) hypertension; K21.9 Gastro-esophageal reflux disease without esophagitis; E78.5 Hyperlipidemia, unspecified
CPT/HCPCS: 36415; 36430; 71010; 74176; 80048; 80053; 80061; 81001; 82962; 83036; 83605; 83690; 83735; 84100; 84443; 85025; 86644; 86704; 86709; 86803; 86850; 86900; 86901; 87040; 87075; 87086; 87340; 96361; 96365; 96366; 96368; 96375; C9113; J0744; J1815; J2270; J2405; J2543; J3370; J7030; J7040; P9035

== ENCOUNTER → 2017-11-06 | Day surgery (SDC) | END | disposition home or self-care (01) ==

== ENCOUNTER 2017-11-15 08:11 | Day surgery (SDC) | END 2017-11-15 17:15 | disposition home or self-care (01) ==

== ENCOUNTER 2018-10-22 16:17 | Emergency (ER) | payer OTHER ==
[~2018-10-22] VITALS: Ht 175.3 cm; Wt 125.3 kg
[~2018-10-22 16:17] MED LIST changes: -ENAL10TA PO; +ENAL5TAB PO; +METF500T24 PO; -METF850T PO; +OMEP20CA16 PO; -OMEP40CA6 PO; +PROP40TA4 PO; -PROP60CA7 PO
[2018-10-22 16:20] VITALS: Ht 175.3 cm; Wt 125.3 kg
[2018-10-22] MEDS ORDERED: SOD CHLORIDE 0.9% 0 ML IV ONE (20:25)
[2018-10-22] MEDS ORDERED: OMEP20CA16 PO (21:18)
[2018-10-22] MEDS ORDERED: PROP80CA3 PO (21:19)
[2018-10-22] MEDS ORDERED: RIFA550T4 PO (21:19)
[2018-10-22] MEDS ORDERED: SPIR50TA PO (21:20)
[2018-10-22] MEDS ORDERED: PIOG30TA71 PO (21:20)
[2018-10-22] MEDS ORDERED: SITA25TA3 PO (21:20)
[2018-10-22] MEDS ORDERED: FURO20TA3 PO (21:20)
[2018-10-22] MEDS ORDERED: ACETAMINOPHEN 325 MG TAB PO PRN (21:30)
[2018-10-22] MEDS ORDERED: ONDANSETRON 4 MG INJ IV PRN (21:30)
--- NOTE | 2018-10-22 22:54 | ERD ---
ER Documentation Chief Complaint Chief Complaint Complains of an active nose bleed HPI Patient is a 48-year-old male with thrombocytopenia, cirrhosis, diabetes, and hypertension who presents for nosebleed. The patient said that he has had a bilateral nares nosebleed. It started on Monday. It is continued off and on. He has required platelet transfusion in the past for this. Upon review of old medical records the patient one previous visit 2017. He does have a primary doctor. ROS All systems reviewed and are negative except as per history of present illness. Medications Home Meds Reported Medications Furosemide* (Furosemide*) 20 Mg Tablet, 20 MG PO BID, #30 TAB 10/22/18 Sitagliptin* (Januvia*) 25 Mg Tablet, 25 MG PO DAILY, #30 TAB 10/22/18 Pioglitazone Hcl* (Pioglitazone Hcl*) 30 Mg Tablet, 30 MG PO DAILY, TAB 10/22/18 Spironolactone* (Aldactone*) 50 Mg Tablet, 50 MG PO BID, #60 TAB 10/22/18 Rifaximin* (Xifaxan*) 550 Mg Tablet, 550 MG PO BID, TAB 10/22/18 Propranolol Hcl* (Propranolol Hcl*) 80 Mg Cap.sa.24h, 80 MG PO BID, TAB 10/22/18 Omeprazole* (Omeprazole*) 20 Mg Capsule.dr, 20 MG PO DAILY, #30 CAP 10/22/18 Discontinued Reported Medications Omeprazole* (Omeprazole*) 20 Mg Capsule.dr, 20 MG PO DAILY, #30 CAP 11/06/17 Rifaximin* (Xifaxan*) 550 Mg Tablet, 550 MG PO BID, TAB 11/06/17 Propranolol Hcl* (Propranolol Hcl*) 40 Mg Tablet, 40 MG PO BID, TAB 11/06/17 Enalapril Maleate* (Enalapril Maleate*) 5 Mg Tablet, 5 MG PO DAILY, TAB 11/06/17 Metformin Hcl* (Metformin Hcl*) 500 Mg Tablet, 500 MG PO WITH BREAKFAST DINNE, #30 TAB 11/06/17 Allergies Allergies: Coded Allergies: No Known Allergy (Unverified , 10/22/18) S/W SDS RN- PT IS NKA. PMhx/Soc History of Surgery: Yes (APPY) Anesthesia Reaction: No Hx Neurological Disorder: No Hx Respiratory Disorders: No Hx Cardiac Disorders: No Hx Psychiatric Problems: No Hx Miscellaneous Medical Probl: No Hx Alcohol Use: No Hx Substance Use: No Hx Tobacco Use: No FmHx Family History: diabetes Physical Exam Vitals Vital Signs Date Temp Pulse Resp B/P (MAP) Pulse Ox O2 O2 Flow FiO2 Time Delivery Rate 10/22/18 98.1 71 20 115/56 96 16:20 (75) Physical Exam Const: No acute distress Head: Atraumatic Eyes: Normal Conjunctiva ENT: Dry blood in the bilateral nares, no active bleeding at this time Neck: Full range of motion. No meningismus. Resp: Clear to auscultation bilaterally Cardio: Regular rate and rhythm, no murmurs Abd: Soft, non tender, non distended. Normal bowel sounds Skin: Pale skin Back: No midline or flank tenderness Ext: No cyanosis, or edema Neur: Awake and alert Psych: Normal Mood and Affect Result Diagram: 10/22/18210010/22/182100 Results 24 hrs Laboratory Tests Test 10/22/18 21:01 White Blood Count 3.9 10^3/ul Red Blood Count 3.04 10^6/ul Hemoglobin 9.9 g/dl Hematocrit 29.1 % Mean Corpuscular Volume 95.7 fl Mean Corpuscular Hemoglobin 32.6 pg Mean Corpuscular Hemoglobin Concent 34.0 g/dl Red Cell Distribution Width 19.1 % Platelet Count 25 10^3/UL Mean Platelet Volume 10.6 fl Immature Granulocytes % 0.500 % Neutrophils % % Segmented Neutrophils % (Manual) 47 % Lymphocytes % % Lymphocytes % (Manual) 44 % Monocytes % % Monocytes % (Manual) 7 % Eosinophils % % Eosinophils % (Manual) 1 % Basophils % % Basophils % (Manual) 1 % Nucleated Red Blood Cells % 0.0 /100WBC Immature Granulocytes # 0.020 10^3/ul Neutrophils # 10^3/ul Lymphocytes (Manual) 1.7 10^3/ul Lymphocytes # 10^3/ul Monocytes # 10^3/ul Monocytes # (Manual) 0.2 10^3/ul Eosinophils # 10^3/ul Basophils # 10^3/ul Basophils # (Manual) 0.0 10^3/ul Nucleated Red Blood Cells # 10^3/ul Platelet Estimate SIG DECREASED Polychromasia 2+ Poikilocytosis 1+ Anisocytosis 1+ Prothrombin Time 17.1 Sec Prothrombin Time Ratio 1.3 INR International Normalized Ratio 1.38 Activated Partial Thromboplast Time 36.7 Sec Sodium Level 137 mmol/L Potassium Level 4.4 mmol/L Chloride Level 103 mmol/L Carbon Dioxide Level 25 mmol/L Anion Gap 9 Blood Urea Nitrogen 30 mg/dl Creatinine 1.23 mg/dl Est Glomerular Filtrat Rate mL/min > 60 mL/min Glucose Level 131 mg/dl Calcium Level 9.0 mg/dl Total Bilirubin 1.8 mg/dl Direct Bilirubin 0.00 mg/dl Indirect Bilirubin 1.8 mg/dl Aspartate Amino Transf (AST/SGOT) 50 IU/L Alanine Aminotransferase (ALT/SGPT) 29 IU/L Alkaline Phosphatase 98 IU/L Troponin I 0.014 ng/ml Total Protein 7.0 g/dl Albumin 3.1 g/dl Globulin 3.90 g/dl Albumin/Globulin Ratio 0.79 Current Medications Medications Dose Sig/Kelvin Start Time Status Last (Trade) Ordered Route PRN Stop Time Admin Dose Reason Admin Sodium 0 ml @ 0 Q0M ONCE 10/22/18 DC 10/22/18 Chloride mls/hr IV 20:25 20:25 10/22/18 20:26 Ondansetron 4 mg BRIDGE ORDER 10/22/18 HCl (Zofran PRN IV 21:30 Inj) NAUSEA/VOMITI 10/23/18 21:29 NG 650 mg ER BRIDGE 10/22/18 Acetaminophen PRN PO 21:30 (Tylenol .MILD PAIN 10/23/18 21:29 Tab) 1-3 OR TEMP Procedures/MDM Patient is a 48-year-old male who presents with epistaxis. The patient's nosebleed has stopped this time. The patient was found to have thrombocytopenia and will be transfused 1 unit of platelets. He also has mild anemia and mild elevation of his INR. I spoke with Dr. Henriquez from the panel team and we decided that outpatient management after platelet transfusion would be a reasonable plan. The patient is no longer bleeding. He will be discharged but will need to follow-up closely with his primary doctor within 24-48 hours for reevaluation. I doubt posterior nosebleed. Departure Diagnosis: Primary Impression: Thrombocytopenia Additional Impression: Epistaxis Condition: Fair Patient Instructions: Thrombocytopenia, Epistaxis (Adult) Additional Instructions: Llame al doctor RUT y mariam dixie LELO PARA DENTRO DE 1-2 EVANS.Dgale a la secretaria que nosotros le instruimos hacer esta lelo.Avise o llame si dickson condicin se empeora antes de la lelo. Regresa aqui si peor o no mejor. PAMELA CAREY MD Oct 22, 2018 22:54
[2018-10-23 00:30] VITALS: BP 102/47; PULSE 67; RESP 22
== END 2018-10-23 00:58 | disposition home or self-care (01) ==
LOC: FTE 16:17 → E/R 10-23 00:58
DX: D69.6 Thrombocytopenia, unspecified (principal); I10 Essential (primary) hypertension; E11.9 Type 2 diabetes mellitus without complications
CPT/HCPCS: 36415; 36430; 80053; 84484; 85025; 85610; 85730; 86644; 86850; 86900; 86901; 93005; J7040; P9035; Z7502

== ENCOUNTER 2018-11-23 07:23 | Day surgery (SDC) | payer OTHER ==
[~2018-11-23] VITALS: Ht 172.7 cm; Wt 124.5 kg
[~2018-11-23 07:23] MED LIST changes: -ENAL5TAB PO; +FURO20TA3 PO; -METF500T24 PO; +PIOG30TA71 PO; -PROP40TA4 PO; +PROP80CA3 PO; +SITA25TA3 PO; +SPIR50TA PO
--- NOTE | 2018-11-23 08:18 | PREAC ---
Date/Time of Note Date/Time of Note DATE: 11/23/18 TIME: 08:16 Anesthesia Eval and Record Evaluation Time Pre-Procedure Interview DATE: 11/23/18 TIME: 08:16 Age 48 Sex male NPO: 8 hrs Preoperative diagnosis Esophageal Varices and Gastritis Planned procedure EGD Past Medical History Past Medical History: Includes Cardio: HTN, Dyslipidemia Endo: Diabetes GI: GERD, Obesity Infection(s): Hep B Surgery & Anesthesia Issues No known issue Meds Anticoagulation: Yes Beta Whit within 24 hr: Yes Reported Medications Furosemide* (Furosemide*) 20 Mg Tablet, 20 MG PO BID, #30 TAB 10/22/18 Sitagliptin* (Januvia*) 25 Mg Tablet, 25 MG PO DAILY, #30 TAB 10/22/18 Pioglitazone Hcl* (Pioglitazone Hcl*) 30 Mg Tablet, 30 MG PO DAILY, TAB 10/22/18 Spironolactone* (Aldactone*) 50 Mg Tablet, 50 MG PO BID, #60 TAB 10/22/18 Rifaximin* (Xifaxan*) 550 Mg Tablet, 550 MG PO BID, TAB 10/22/18 Propranolol Hcl* (Propranolol Hcl*) 80 Mg Cap.sa.24h, 80 MG PO BID, TAB 10/22/18 Omeprazole* (Omeprazole*) 20 Mg Capsule.dr, 20 MG PO DAILY, #30 CAP 10/22/18 Meds reviewed: Yes Allergies Coded Allergies: No Known Allergy (Unverified , 11/22/18) S/W SDS RN- PT IS DOROTHY. Allergies Reviewed: Yes Labs/Studies Labs Reviewed: Reviewed by anesthesiologist test: N/A Studies: ECG (n/a), CXR (n/a) Pre-procedure Exam Airway: Adequate mouth opening, Adequate thyromental dist Mallampati: Mallampati II Teeth: Normal Lung: Normal Heart: Normal ASA Physical Status ASA physical status: 4 Emergency: None Planned Anesthetic General/MAC: MAC Planned Pain Management Parenteral pain med Pre-operative Attestations Prior to commencing anesthesia and surgery, the patient was re-evaluated, there was verification of: *The patient's identity *The results of appropriate recent lab work and preoperative vital signs *The above evaluation not changing prior to induction *Anesthetic plan, risk benefits, alternative and complications discussed with patient/family; questions answered; patient/family understands, accepts and wishes to proceed. PAULA GUADALUPE MD Nov 23, 2018 08:18
[2018-11-23 08:27] VITALS: Ht 172.7 cm; Wt 124.5 kg
[2018-11-23] MEDS ORDERED: ENALAPRIL (08:29)
[2018-11-23] MEDS ORDERED: INSULIN REGULAR, HUMAN 100 UNIT/1 ML 3ML VIAL SC ONE ×3 (08:30→09:45)
[2018-11-23] MEDS ORDERED: PROPOFOL 40 ML ONE (08:53)
[2018-11-23 08:57] VITALS: BP 129/63; PULSE 64; RESP 20
--- NOTE | 2018-11-23 08:58 | PAC ---
Date/Time of Note Date/Time of Note DATE: 11/23/18 TIME: 08:58 Post-Anesthesia Notes Post-Anesthesia Note Last documented vital signs T:98.1 Activity: WNL Respiratory function: WNL Cardiovascular function: WNL Mental status: Baseline Pain reasonably controlled: Yes Hydration appropriate: Yes Nausea/Vomiting absent: Yes PAULA GUADALUPE MD Nov 23, 2018 08:58
[2018-11-23 09:23] VITALS: BP 119/61; PULSE 68; RESP 12
[2018-11-23 09:46] VITALS: BP 124/65; PULSE 64; RESP 15
== END 2018-11-23 12:56 | disposition home or self-care (01) ==
LOC: GIL 07:23
PROVIDERS: ATTEND Internal Medicine Gastroenterology
DX: I85.10 Secondary esophageal varices without bleeding (principal); K29.80 Duodenitis without bleeding; I10 Essential (primary) hypertension; E11.9 Type 2 diabetes mellitus without complications
CPT/HCPCS: 43239; 82962; 88305; J1815; Z7610

== ENCOUNTER 2019-04-11 18:27 | Emergency (ER) | payer OTHER ==
[~2019-04-11] VITALS: Ht 172.7 cm; Wt 130.2 kg
[~2019-04-11 18:27] MED LIST changes: +ENALAPRIL; -FURO20TA3 PO; +GLIP5TAB13 PO; -PIOG30TA71 PO; +SITA50TA2 PO; -SPIR50TA PO
[2019-04-11 18:42] VITALS: Ht 172.7 cm; Wt 130.2 kg
[2019-04-11] MEDS ORDERED: SOD CHLORIDE 0.9% 0 ML IV ONE (19:45)
[2019-04-11 23:54] VITALS: BP 120/53; PULSE 66; RESP 14
== END 2019-04-11 23:55 | disposition home or self-care (01) ==
LOC: E/R 18:27
DX: D59.1 Other autoimmune hemolytic anemias (principal); D61.818 Other pancytopenia; K74.60 Unspecified cirrhosis of liver; R18.8 Other ascites; E11.9 Type 2 diabetes mellitus without complications; I10 Essential (primary) hypertension; Z79.84 Long term (current) use of oral hypoglycemic drugs
CPT/HCPCS: 36415; 36430; 80053; 83690; 85025; 85610; 85730; 86850; 86900; 86901; 86920; J7040; P9016; Z7502